=== PATIENT | male | born 1990 | race Caucasian/White ===

== ENCOUNTER 2020-01-19 11:54 | Emergency (ER) | payer BC, OTHER ==
--- NOTE | 2020-01-19 12:47 | ER Document Report ---
ED Medical Screen (RME) - General Chief Complaint: Chest Tightness Stated Complaint: CHEST TIGHTNESS Time Seen by Provider: 01/19/20 12:36 Mode of Arrival: Wheelchair Information source: Patient Notes: 29-year-old male presented to ED for complaint of feeling "strange ". He states is almost like he is lightheaded but not quite. He states he does get very tachycardic and short of breath when he tries to lie down at night. He states last night at midnight he had to get up and walk around his heart was racing and then he was able to come down a little and go to bed. He states today he is had a very fast heart rate with labored breathing. He states he tried to do a workout Wednesday and was only able to do 1 set of crunches before he became very lightheaded and short of breath. He states he does have a history of anxiety and has had tightness of chest from anxiety in the past. She states she did test positive for COVID in October but has not had a test since then. He states he does like to go by [facility] I have greeted and performed a rapid initial assessment of this patient. A comprehensive ED assessment and evaluation of the patient, analysis of test results and completion of medical decision making process will be conducted by an additional ED providers. - Related Data Allergies/Adverse Reactions: Penicillins Allergy (Verified 01/19/20 12:37) Physical Exam - Vital signs Vitals: Temp Pulse Resp BP Pulse Ox 98.1 F 68 16 177/62 H 100 01/19/20 12:05 01/19/20 12:05 01/19/20 12:05 01/19/20 12:05 01/19/20 12:05 Course - Vital Signs Vital signs: Temp Pulse Resp BP Pulse Ox 98.1 F 68 16 177/62 H 100 01/19/20 12:05 01/19/20 12:05 01/19/20 12:05 01/19/20 12:05 01/19/20 12:05
--- NOTE | 2020-01-19 13:05 | EKG REPORT ---
SEVERITY:- NORMAL ECG - SINUS RHYTHM : Confirmed by: Apollo Connolly MD 19-Jan-2020 13:04:08
[2020-01-19 13:57] LABS: ABSOLUTE LYMPHOCYTES (AUTO) 1.8 10^3/uL (0.5-4.7); ABSOLUTE MONOCYTES (AUTO) 0.6 10^3/uL (0.1-1.4); ABSOLUTE NEUT (AUTO) 5.9 10^3/uL (1.7-8.2); BASOPHILS % (AUTO) 0.5 % (0-2); EOSINOPHILS % (AUTO) 0.3 % (0-6); HEMATOCRIT 46.6 % (37.9-51.0); HEMOGLOBIN 16.4 g/dL (13.5-17.0); INTERNATIONAL RATION (INR) 0.92; LYMPHOCYTES % (AUTO) 21.3 % (13-45); MEAN CORPUSCULAR HEMOGLOBIN 31.9 pg (27.0-33.4); MEAN CORPUSCULAR HGB CONC 35.2 g/dL (32.0-36.0); MEAN CORPUSCULAR VOLUME 90 fl (80-97); MONOCYTES % (AUTO) 6.7 % (3-13); PARTIAL THROMBOPLASTIN TIME 28.6 SEC (23.5-35.8); PLATELET COUNT 295 10^3/uL (150-450); PROTHROMBIN TIME 12.6 SEC (11.4-15.4); RED BLOOD COUNT 5.15 10^6/uL (4.35-5.55); SEGMENTED NEUTROPHILS % (AUTO) 71.2 % (42-78); TOTAL CELLS COUNTED % (AUTO) 100 %; WHITE BLOOD COUNT 8.3 10^3/uL (4.0-10.5)
[2020-01-19 14:11] LABS: ALBUMIN 5.3 g/dL (3.5-5.0); ALKALINE PHOSPHATASE 62 U/L (38-126); ANION GAP 13 (5-19); ASPARTATE AMINO TRANSFERASE 29 U/L (17-59); BILIRUBIN,DIRECT 0.3 mg/dL (0.0-0.4); BILIRUBIN,TOTAL 1.2 mg/dL (0.2-1.3); BLOOD UREA NITROGEN 17 mg/dL (7-20); CALCIUM 10.3 mg/dL (8.4-10.2); CARBON DIOXIDE 27 mmol/L (22-30); CHLORIDE 101 mmol/L (98-107); CREATINE KINASE 107 U/L (55-170); GLUCOSE 106 mg/dL (75-110); POTASSIUM 4.5 mmol/L (3.6-5.0); TOTAL PROTEIN 8.4 g/dL (6.3-8.2)
--- NOTE | 2020-01-19 14:28 | RADIOLOGY REPORT (SQ) ---
EXAM DESCRIPTION: CHEST SINGLE VIEW IMAGES COMPLETED DATE/TIME: 01/19/2020 2:06 pm REASON FOR STUDY: Chest pain short of breath COMPARISON: None. EXAM PARAMETERS: NUMBER OF VIEWS: One view. TECHNIQUE: Single frontal radiographic view of the chest acquired. RADIATION DOSE: NA LIMITATIONS: None. FINDINGS: LUNGS AND PLEURA: No opacities, masses or pneumothorax. No pleural effusion. MEDIASTINUM AND HILAR STRUCTURES: No masses. Contour normal. HEART AND VASCULAR STRUCTURES: Heart normal in size. Normal vasculature. BONES: No acute findings. HARDWARE: None in the chest. OTHER: No other significant finding. IMPRESSION: NO ACUTE RADIOGRAPHIC FINDING IN THE CHEST. TECHNICAL DOCUMENTATION: JOB ID: [id number] [email or web address] All Rights Reserved Reading location - IP/workstation name: [email or web address]
--- NOTE | 2020-01-19 15:49 | ER Document Report ---
ED Cardiac - General Chief Complaint: Chest Tightness Stated Complaint: CHEST TIGHTNESS Time Seen by Provider: 01/19/20 12:36 Mode of Arrival: Wheelchair Notes: CHIEF COMPLAINT: Heart racing sensation and COVID test HPI: 29-year-old male presenting for heart racing sensation last night that kept him awake all night, mild chest discomfort that happened all night long with this. States he has had this happen infrequently in the past never had it evaluated. States that he was lifting weights several days ago and did feel slightly lightheaded while lifting. No current chest discomfort no sensation of heart beating irregularly or quickly currently. No shortness of breath. Patient would like to be COVID tested as he states that his symptoms in October when he was positive for COVID were atypical. He does go to a public gym ROS: See HPI - all other systems were reviewed and are otherwise negative Constitutional: no fever Eyes: no drainage, no blurred vision ENT: no runny nose, no sore throat Cardiovascular: + chest pain Resp: no SOB, no cough GI: no vomiting, no diarrhea, no abdominal pain : no dysuria Integumentary: no rash Allergy: no hives Musculoskeletal: no extremity pain or swelling Neurological: no numbness/tingling, no weakness MEDICATIONS: I agree with the patient medications as charted by the RN. ALLERGIES: I agree with the allergies as charted by the RN. PAST MEDICAL HISTORY/PAST SURGICAL HISTORY: Reviewed and agree as charted by RN. SOCIAL HISTORY: Reviewed and agree as charted by RN. FAMILY HISTORY: No significant familial comorbid conditions directly related to patient complaint EXAM: Reviewed vital signs as charted by RN. CONSTITUTIONAL: Alert and oriented and responds appropriately to questions. Well-appearing; well-nourished HEAD: Normocephalic; atraumatic EYES: PERRL; Conjunctivae clear, sclerae non-icteric ENT: normal nose; no rhinorrhea; moist mucous membranes; pharynx without lesions noted, no uvula edema or deviation, no tonsillar hypertrophy, phonation normal NECK: Supple without meningismus; non-tender; no cervical lymphadenopathy, no masses CARD: RRR; no murmurs, no clicks, no rubs, no gallops; symmetric distal pulses RESP: Normal chest excursion without splinting or tachypnea; breath sounds clear and equal bilaterally; no wheezes, no rhonchi, no rales, pulse oximetry 98% on room air not hypoxic ABD/GI: Normal bowel sounds; non-distended; soft, non-tender, no rebound, no guarding; no palpable organomegaly or masses. BACK: The back appears normal and is non-tender to palpation, there is no CVA tenderness EXT: Normal ROM in all joints; non-tender to palpation; no cyanosis, no effusions, no edema SKIN: Normal color for age and race; warm; dry; good turgor; no acute lesions noted NEURO: Moves all extremities equally; Motor and sensory function intact PSYCH: The patient's mood and manner are appropriate. Grooming and personal hygi maxwell are appropriate. MDM: 29-year-old male heart racing sensation last night screening labs initially ordered via triage process are all normal including troponin CBC CMP. Will add TSH. EKG sinus rhythm with a ventricular rate of 66. FL 120. QT 388. QTc 407. No other ectopy. Normal EKG. Interpreted by emergency department physician. TSH negative will refer to cardiology for possible Holter placement. Patient does go to a public and would like a [employer] test - Related Data Allergies/Adverse Reactions: Penicillins Allergy (Verified 01/19/20 12:37) Past Medical History - General Information source: Patient - Social History Smoking Status: Never Smoker Chew tobacco use (# tins/day): No Frequency of alcohol use: None Drug Abuse: None Family History: Reviewed & Not Pertinent Patient has homicidal ideation: No Physical Exam - Vital signs Vitals: Temp Pulse Resp BP Pulse Ox 98.1 F 68 16 177/62 H 100 01/19/20 12:05 01/19/20 12:05 01/19/20 12:05 01/19/20 12:05 01/19/20 12:05 Course - Re-evaluation Re-evalutation: 01/19/20 17:14 TSH and other lab work essentially normal. Will discharge home to follow-up with cardiology - Vital Signs Vital signs: Temp Pulse Resp BP Pulse Ox 98.1 F 68 16 177/62 H 100 01/19/20 12:05 01/19/20 12:05 01/19/20 12:05 01/19/20 12:05 01/19/20 12:05 - Laboratory Result Diagrams: 01/19/20 13:35 01/19/20 13:35 Laboratory results interpreted by me: 01/19/20 13:35 Calcium 10.3 H Total Protein 8.4 H Albumin 5.3 H Discharge - Discharge Clinical Impression: Palpitations, Person under investigation for COVID-19 Condition: Stable Disposition: HOME, SELF-CARE Additional Instructions: Your lab work and imaging studies today did not show acute abnormalities. Follow-up closely with cardiology for further outpatient evaluation and testing. You are considered a person under investigation for COVID-19 at this time self quarantine at home pending her test result which may take 2 to 5 days, you should receive notification from the hospital about your test results Referrals: TIANA ST MD [ACTIVE STAFF] - Follow up as needed
[2020-01-19 17:36] VITALS: BP 133/77
== END 2020-01-19 18:02 | disposition home or self-care (01) ==
LOC: ER 11:54
DX: R00.2 Palpitations (principal); R07.89 Other chest pain; Z86.19 Personal history of other infectious and parasitic diseases; Z88.0 Allergy status to penicillin; Z20.828 Contact with and (suspected) exposure to other viral communicable diseases
CPT/HCPCS: 93005; 99285; 36415; 82550; 83735; 84443; 85025; 85610; 85730; 80053; 84484; 71045; 93010; U0003; C9803; 87635